=== PATIENT | female | born 1990 | race American Indian/Alaskan Native ===

== ENCOUNTER 2016-08-01 10:58 | Emergency (ER) | payer SELFPAY ==
[2016-08-01 12:55] LABS: Bacteria,Urine 1+ /HPF (Negative); Bilirubin,Urine NEG (Negative); Blood,Urine NEG (Negative); Ketones,Urine NEG (Negative); Leukocyte Esterase,Urine LG (Negative); Mucus,Urine 1+ /HPF; Nitrite,Urine NEG (Negative); Protein,Urine <15 mg/dL mg/dL (Negative); Urobilinogen,Urine < 2.0 mg/dL (<2.0)
--- NOTE | 2016-08-01 18:08 | Emergency Department Report ---
Entered by DOMINGO DOBBINS, acting as scribe for KENYATTA COLIN PA. ED Female HPI - General Chief complaint: Urogenital-Female Stated complaint: VAGINAL DISCHARGE Time Seen by Provider: 08/01/16 12:44 Source: patient Mode of arrival: Ambulatory Limitations: No Limitations - History of Present Illness Initial comments: 25 year old female, currently 8 weeks , presents to the ED for evaluation of itching and burning in vaginal area with urination for 3 weeks. Patient was evaluated for symptoms and prescribed Macrobid 100 mg. Despite compliance with prescription, symptoms have persisted. She reports Hx of frequent bacterial vaginosis. Notes she is currently . Denies abdominal pain, vaginal bleeding, fever, chills, nausea, vomiting, chest pain, shortness of breath, abdominal pain. MD Complaint: vaginal discharge, dysuria Onset/Timin -: week(s) Improves with: none Worsens with: urination Are you Now?: Yes Associated Symptoms: vaginal discharge, nausea/vomiting, dysuria. denies: vaginal bleeding, abdominal pain, fever/chills, hematuria, shortness of breath - Related Data Sexually active: Yes (one partner. Partner has no urogenital symptoms) Para: 2 Previous Rx's Medication Instructions Recorded Last Taken Type metroNIDAZOLE [Flagyl] 500 mg PO Q12HR #14 tab 08/01/16 Unknown Rx Allergies Allergy/AdvReac Type Severity Reaction Status Date / Time No Known Allergies Allergy Unverified 08/01/16 11:03 ED Review of Systems Comment: All other systems reviewed and negative Constitutional: denies: chills, fever Respiratory: denies: shortness of breath Cardiovascular: denies: chest pain Endocrine: no symptoms reported Gastrointestinal: denies: abdominal pain, nausea, vomiting Genitourinary: dysuria, discharge, other (Reports . Denies vaginal bleeding.). denies: hematuria ED Past Medical Hx - Past Medical History Previous Medical History?: Yes Additional medical history: UTI - Surgical History Past Surgical History?: No - Social History Smoking Status: Never Smoker Substance Use Type: Alcohol, Prescribed - Medications Home Medications: Home Medications Medication Instructions Recorded Confirmed Last Taken Type metroNIDAZOLE [Flagyl] 500 mg PO Q12HR #14 tab 08/01/16 Unknown Rx ED Physical Exam - General Limitations: No Limitations - Other Other exam information: GENERAL: The patient is well-developed and well-nourished. Patient is in NAD. HEAD: Normocephalic. Atraumatic. CHEST/LUNGS: Clear to auscultation throughout. HEART/CARDIOVASCULAR: Regular rate and rhythm. No murmurs, rubs or gallops. ABDOMEN: Abdomen is soft, nontender. Bowel sounds normoactive. No guarding or rebound tenderness. EXTREMITIES: Peripheral pulses intact. Capillary refill less than 2 seconds. NEURO: Alert and oriented x 3. Normal gait. : Normal external genitalia. Normal cervix. White discharge noted in the vaginal canal. ED Course Vital Signs 08/01/16 11:03 Temperature 98.3 F Pulse Rate 89 Respiratory 18 Rate Blood Pressure 131/73 O2 Sat by Pulse 100 Oximetry ED Medical Decision Making - Lab Data Vital Signs 08/01/16 11:03 Temperature 98.3 F Pulse Rate 89 Respiratory 18 Rate Blood Pressure 131/73 O2 Sat by Pulse 100 Oximetry Lab Results 08/01/16 Range/Units 12:19 Urine Color Yellow (Yellow) Urine Turbidity Clear (Clear) Urine pH 7.0 (5.0-7.0) Ur Specific [place] 1.020 (1.003-1.030) Urine Protein <15 mg/dl (Negative) mg/dL Urine Glucose (UA) Neg (Negative) mg/dL Urine Ketones Neg (Negative) mg/dL Urine Blood Neg (Negative) Urine Nitrite Neg (Negative) Urine Bilirubin Neg (Negative) Urine Urobilinogen < 2.0 (<2.0) mg/dL Ur Leukocyte Esterase Lg (Negative) Urine WBC (Auto) 5.0 (0.0-6.0) /HPF Urine RBC (Auto) 2.0 (0.0-6.0) /HPF U Epithel Cells (Auto) 7.0 (0-13.0) /HPF Urine Bacteria (Auto) 1+ (Negative) /HPF Urine Mucus 1+ /HPF - Medical Decision Making 25 year old female, currently 8 weeks , presents today with vaginal discharge, dysuria, no vaginal bleeding, x 3 weeks. Her UA is positive for leukocyte esterase. Her wet prep reveals less than 20% clue cells. Patient is in no acute distress at this time. She will be discharged home and is encouraged to follow up with a primary care provider. She is encouraged to return to the emergency room for any worsening symptoms. ED Disposition Clinical Impression: Bacterial vaginosis Disposition: DISCHARGED TO HOME OR SELFCARE Is pt being admited?: No Does the pt Need Aspirin: No Condition: Stable Instructions: Bacterial Vaginosis (ED) Additional Instructions: Follow-up with primary care provider. Return to the emergency department if symptoms worsen. Prescriptions: metroNIDAZOLE [Flagyl] 500 mg PO Q12HR #14 tab Referrals: PRIMARY CAREMD [Primary Care Provider] - 3-5 Days JARVIS CID MD [Referring] - 3-5 Days Forms: STI Treatment and Prevention, Work/School Release Form(ED), Accompanied Note Time of Disposition: 17:48 This documentation as recorded by the MU beck REBEKAH,accurately reflects the service I personally performed and the decisions made by ,KENYATTA COLIN PA.
[2016-08-01 18:13] VITALS: BP 130/74
== END 2016-08-01 18:13 | disposition home or self-care (01) ==
LOC: ED 10:58
DX: O23.31 Infections of other parts of urinary tract in pregnancy, first trimester (principal); N76.0 Acute vaginitis; B96.89 Other specified bacterial agents as the cause of diseases classified elsewhere; Z3A.08 8 weeks gestation of pregnancy
CPT/HCPCS: 81001; 87210; 87591; 99284